=== PATIENT | female | born 1955 | race Caucasian/White ===

== ENCOUNTER 2021-01-31 09:06 | Emergency (ER) | payer OTHER ==
[2021-01-31 09:15] VITALS: BP 151/81; PULSE 103; RESP 18; TEMP 99.3
--- NOTE | 2021-01-31 10:07 | ED ---
General Adult HPI - General Stated complaint: tired, loss of smell Time Seen by Provider: 01/31/21 09:13 Source: patient, RN notes reviewed Mode of arrival: ambulatory Limitations: no limitations - History of Present Illness Initial comments: 65-year-old female presents emergency Department for COVID-19 testing. Patient states she has a change in her taste and smell. Patient states she has a cough which is a daily smoker. No fever no chest pain or shortness breath no other complaints. - Related Data Allergies Allergy/AdvReac Type Severity Reaction Status Date / Time tetracycline Allergy Swelling Verified 01/31/21 09:15 Review of Systems ROS Statement: Those systems with pertinent positive or pertinent negative responses have been documented in the HPI. ROS Other: All systems not noted in ROS Statement are negative. Past Medical History Past Medical History: No Reported History History of Any Multi-Drug Resistant Organisms: None Reported Past Surgical History: Hernia Repair, Tubal Ligation Past Psychological History: No Psychological Hx Reported Smoking Status: Current every day smoker Past Alcohol Use History: Occasional Past Drug Use History: None Reported General Exam Limitations: no limitations General appearance: alert, in no apparent distress Head exam: Present: atraumatic, normocephalic, normal inspection Eye exam: Present: normal appearance, PERRL, EOMI. Absent: scleral icterus, conjunctival injection, periorbital swelling Respiratory exam: Present: normal lung sounds bilaterally. Absent: respiratory distress, wheezes, rales, rhonchi, stridor Cardiovascular Exam: Present: regular rate, normal rhythm, normal heart sounds. Absent: systolic murmur, diastolic murmur, rubs, gallop, clicks Course Vital Signs 01/31/21 09:12 Temperature 99.3 F Pulse Rate 103 H Respiratory 18 Rate Blood Pressure 151/81 O2 Sat by Pulse 96 Oximetry Medical Decision Making - Medical Decision Making Negative covid 19 testing. - Lab Data Lab Results 01/31/21 Range/Units 09:17 Coronavirus (PCR) Not Detected (Not Detectd) Disposition Clinical Impression: Encounter for laboratory testing for COVID-19 virus Disposition: HOME SELF-CARE Condition: Stable Additional Instructions: Please return to the Emergency Department if symptoms worsen or any other concerns. Is patient prescribed a controlled substance at d/c from ED?: No Referrals: None,Stated [Primary Care Provider] - 1-2 days Time of Disposition: 10:07
== END 2021-01-31 10:20 | disposition home or self-care (01) ==
LOC: EC 09:06
DX: R43.0 Anosmia (principal); R05.9 Cough, unspecified; F17.200 Nicotine dependence, unspecified, uncomplicated; Z20.822 Contact with and (suspected) exposure to COVID-19; Z88.1 Allergy status to other antibiotic agents
CPT/HCPCS: 87635; 99283